=== PATIENT | female | born 1995 | race Caucasian/White ===

== ENCOUNTER 2017-09-01 13:09 | Emergency (ER) | payer OTHER ==
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
--- NOTE | 2017-09-01 14:11 | RAD ---
Procedure: XR WRIST 3 OR MORE VIEWS Exam Date: 09/01/2017 1:24 PM [employer] Ordering Provider: Kevin Mcgee Clinical Indication: trauma, fell forward, injury, deformity Comparison: None Findings: No acute fracture or focal osseous destruction is present. The joint spaces are maintained. There is soft tissue swelling primarily about the volar aspect of the wrist. IMPRESSION: No acute osseous abnormality. Soft tissue swelling about the volar aspect of the wrist. Electronically signed by: Nora Victoria MD 09/01/2017 2:10 PM [employer]
[2017-09-01] MEDS ORDERED: HYDROcodone 10MG/APAP 325MG 1 EA TAB PO ONE (14:20)
[2017-09-01 14:55] VITALS: BP 118/74; TEMP 97; O2SAT 99
== END 2017-09-01 14:45 | disposition home or self-care (01) ==
LOC: ER 13:09
DX: S63.501A Unspecified sprain of right wrist, initial encounter (principal); V86.69XA Passenger of other special all-terrain or other off-road motor vehicle injured in nontraffic accident, initial encounter; Y92.9 Unspecified place or not applicable